=== PATIENT | female | born 1950 | race Caucasian/White ===

== ENCOUNTER 2019-09-05 11:52 | Emergency (ER) | payer MEDICARE ==
[~2019-09-05] VITALS: Ht 165.1 cm; Wt 41.7 kg
[~2019-09-05 11:52] MED LIST: ATOR40TA59 PO; BENZ100C PO; DOCU-109 PO; ESTR1TAB15 PO; FLUT9.9S NS; MULT1TAB6 PO; OMEP20CA10 PO; OXYM15MI4 NS; PRED20TA PO; SENN8.6T99 PO; SUCR1TAB35 PO; TIOT4MIS3 IH; VITA1CAP PO
[2019-09-05] MEDS ORDERED: ACETAMINOPHEN 500 MG TABLET PO ONE (13:00)
--- NOTE | 2019-09-05 13:01 | PHYS DOC ---
Past Medical History Past Medical History: Bronchitis, CAD, COPD Additional Past Surgical Histo: Cerebral aneurysm coiling Alcohol Use: None Drug Use: None Adult General Chief Complaint Chief Complaint: MULTIPLE COMPLAINTS HPI HPI Patient is a 68-year-old female presents to the emergency department for evaluation. She states that she awakened at 4 AM this morning, with a headache, some generalized blurred vision, dizziness which she describes as lightheadedness, and states that although her headache has persisted, the other symptoms have gradually improved. She denies any numbness or weakness, neck stiffness or pain, chest pain, or significant cough. She reports a mild increased shortness of breath compared to her baseline but does have a history of COPD. She has not had any vomiting. She states that she has had similar headaches to the current headache that she has had now, on and off for the past several years, and attributes them to "migraines". She denies any tinnitus, or hearing changes. She states that this headache is not different than her prior headaches and is not "worst headache of her life". There are no alleviating or exacerbating factors to her symptoms. The patient has a history of hypertension, and states she took her metoprolol this morning. Review of Systems Review of Systems Constitutional: Denies fever or chills [] Eyes: Denies current change in visual acuity, redness, or eye pain [] HENT: Denies nasal congestion or sore throat [] Respiratory: Denies cough or pleuritic pain[] Cardiovascular: The patient denies any shortness of breath, chest pain, palpitations, or orthopnea[] GI: Denies abdominal pain, nausea, vomiting, bloody stools or diarrhea [] : Denies dysuria or hematuria [] Musculoskeletal: Denies back pain or joint pain [] Integument: Denies rash or skin lesions [] Neurologic: Denies focal weakness or sensory changes [] Endocrine: Denies polyuria or polydipsia [] All other systems were reviewed and found to be within normal limits, except as documented in this note. Current Medications Current Medications Current Medications Medications (Trade) Dose Ordered Sig/Fam Start Time Stop Time Status Last Admin Dose Admin Acetaminophen (Tylenol) 1,000 mg 1X ONCE 09/05/19 13:00 09/05/19 13:01 DC 09/05/19 13:29 1,000 MG Allergies Allergies Allergies Coded Allergies Type Severity Reaction Last Updated Verified No Known Drug Allergies 03/17/16 No Physical Exam Physical Exam PHYSICAL EXAM: CONSTITUTIONAL: Well developed, well nourished HEAD: normocephalic, atraumatic EENT: PERRL, EOMI. Conjunctivae normal color, sclerae non-icteric; moist mucous membranes. There is no nystagmus NECK: Supple, non-tender; no meningismus. LUNGS: Lungs CTA, breathing even and unlabored. Normal air movement. HEART: Regular rate and rhythm, no murmur CHEST: No deformity; non-tender ABDOMEN: The abdomen is soft, and non-tender, no masses or bruits. EXTREM: Normal ROM; no deformity, no calf tenderness. Normal pulses palpable in all extremities. There is no pedal edema. SKIN: No rash; no diaphoresis NEURO: Alert; normal speech and cognition; CN's grossly intact; strength grossly intact without focal deficit. [id number] and heel arneas testing is normal. Visual rubio are intact by confrontation. NIH stroke scale score is 0. BACK: No CVA TTP. Current Patient Data Vital Signs Vital Signs Date Time Temp Pulse Resp B/P (MAP) Pulse Ox O2 Delivery O2 Flow Rate FiO2 09/05/19 12:33 97.8 60 18 190/86 (120) 98 Room Air 97.8 Lab Values Laboratory Tests Test 09/05/19 12:13 09/05/19 12:46 Urine Collection Type Unknown Urine Color Yellow Urine Clarity Clear Urine pH 7.5 Urine Specific [place] 1.010 Urine Protein Negative mg/dL (NEG-TRACE) Urine Glucose (UA) Negative mg/dL (NEG) Urine Ketones (Stick) Negative mg/dL (NEG) Urine Blood Negative (NEG) Urine Nitrite Negative (NEG) Urine Bilirubin Negative (NEG) Urine Urobilinogen Dipstick 0.2 mg/dL (0.2 mg/dL) Urine Leukocyte Esterase Negative (NEG) Urine RBC 11-20 /HPF (0-2) Urine WBC Occ /HPF (0-4) Urine Squamous Epithelial Cells Mod /LPF Urine Bacteria Few /HPF (0-FEW) White Blood Count 9.4 x10^3/uL (4.0-11.0) Red Blood Count 4.81 x10^6/uL (3.50-5.40) Hemoglobin 15.1 g/dL (12.0-15.5) Hematocrit 44.7 % (36.0-47.0) Mean Corpuscular Volume 93 fL (79-100) Mean Corpuscular Hemoglobin 31 pg (25-35) Mean Corpuscular Hemoglobin Concent 34 g/dL (31-37) Red Cell Distribution Width 13.5 % (11.5-14.5) Platelet Count 226 x10^3/uL (140-400) Neutrophils (%) (Auto) 65 % (31-73) Lymphocytes (%) (Auto) 26 % (24-48) Monocytes (%) (Auto) 8 % (0-9) Eosinophils (%) (Auto) 1 % (0-3) Basophils (%) (Auto) 1 % (0-3) Neutrophils # (Auto) 6.1 x10^3/uL (1.8-7.7) Lymphocytes # (Auto) 2.4 x10^3/uL (1.0-4.8) Monocytes # (Auto) 0.8 x10^3/uL (0.0-1.1) Eosinophils # (Auto) 0.1 x10^3/uL (0.0-0.7) Basophils # (Auto) 0.1 x10^3/uL (0.0-0.2) Prothrombin Time 12.3 SEC (11.7-14.0) Prothrombin Time INR 0.9 (0.8-1.1) Sodium Level 140 mmol/L (136-145) Potassium Level 4.3 mmol/L (3.5-5.1) Chloride Level 104 mmol/L (98-107) Carbon Dioxide Level 25 mmol/L (21-32) Anion Gap 11 (6-14) Blood Urea Nitrogen 13 mg/dL (7-20) Creatinine 0.9 mg/dL (0.6-1.0) Estimated GFR (Cockcroft-Gault) 62.3 BUN/Creatinine Ratio 14 (6-20) Glucose Level 81 mg/dL (70-99) Calcium Level 9.2 mg/dL (8.5-10.1) Total Bilirubin 0.5 mg/dL (0.2-1.0) Aspartate Amino Transferase (AST) 35 U/L (15-37) Alanine Aminotransferase (ALT) 35 U/L (14-59) Alkaline Phosphatase 84 U/L (46-116) Troponin I Quantitative < 0.017 ng/mL (0.000-0.055) Total Protein 7.1 g/dL (6.4-8.2) Albumin 3.8 g/dL (3.4-5.0) Albumin/Globulin Ratio 1.2 (1.0-1.7) Laboratory Tests 09/05/19 12:46 Laboratory Tests 09/05/19 12:46 EKG EKG []Normal sinus rhythm at a rate of 56 bpm, borderline left axis deviation, normal intervals. There are no acute ischemic ST/T changes. Nonspecific changes are present. Radiology/Procedures Radiology/Procedures PROCEDURE: CT HEAD WO CONTRAST CT HEAD INDICATION: Headache COMPARISON: None Available. Exposure: One or more of the following individualized dose reduction techniques were utilized for this examination: 1. Automated exposure control 2. Adjustment of the mA and/or kV according to patient size 3. Use of iterative reconstruction technique TECHNIQUE: 5 mm contiguous axial images were obtained from the skull base to the vertex in both bone and soft tissue algorithm. FINDINGS: Mild bilateral periventricular white matter hypodensities likely chronic small vessel ischemic disease. Metallic aneurysm coils artifact limits evaluation. There is a 1.7 x 1.0 cm hyperdensity identified abutting the left frontoparietal skull bone and abutting the dura best visualized on series 2 image #24 probably a meningioma. The basal cisterns are uneffaced. No evidence of acute intracranial hemorrhage. No extra-axial fluid collections. No mass effect or midline shift. Ventricular size is appropriate. Basal cisterns are patent. IMPRESSION: 1. 1.7 cm hyperdensity abutting the dura in the left frontoparietal scalp bone probably meningioma. MRI would be useful for confirmation in the aneurysm coils compatible. Alternatively comparison to prior exam is recommended if available. 2. Metallic aneurysm coils artifact limits evaluation. [] PROCEDURE: PORTABLE CHEST 1V EXAM: Chest, single view. HISTORY: Shortness of breath. COMPARISON: 03/17/2016 FINDINGS: A frontal view of the chest is obtained. There is emphysema. There is biapical and basilar pleural-parenchymal scarring. There are few calcified granulomas. There is a stable cardiac silhouette. IMPRESSION: No acute pulmonary finding. Course & Med Decision Making Course & Med Decision Making Pertinent Labs and Imaging studies reviewed. (See chart for details) [] 2:40 PM: The patient's condition remains stable. She is feeling significantly better and her headache has completely resolved after administration of Tylenol. I discussed test results, including the CT scan results, the need for close follow-up with her neurosurgery at [facility], and return precautions in detail. The patient feels well enough to go home. Her blood pressure is noted to be somewhat elevated still, and I discussed importance of those outpatient follow- up for her blood pressure. Dragon Disclaimer Dragon Disclaimer This electronic medical record was generated, in whole or in part, using a voice recognition dictation system. Departure Departure Impression: Primary Impression: Headache Additional Impressions: Microscopic hematuria Hypertension Disposition: HOME, SELF-CARE Condition: IMPROVED Referrals: JUAN ROACH MD (PCP) Patient Instructions: Dizziness, General Headache Without Cause, Hematuria, Adult, Hypertension Additional Instructions: Contact your primary care provider for further outpatient evaluation. Your blood pressure was noted to be elevated today, and will warrant further outpatient management and follow-up. Additionally, there is a small mass seen on her CAT scan today, her head, which might be consistent with a meningioma, but further outpatient evaluation is warranted. Please call the neurosurgery Department at [facility], where you have had care prior, for further outpatient evaluation. Additionally, there was a small amount of blood noticed in your urine today. Please follow-up with your primary care provider for further outpatient evaluation, as further testing and urological consultation is warranted to e nsure that there is no serious or malignant cause of this finding. Scripts Amlodipine Besylate (NORVASC) 5 Mg Tablet 1 TAB PO DAILY, #30 TAB 0 Refills Prov: LYNN MERIDA MD 09/05/19 Problem Qualifiers LYNN MERIDA MD Sep 05, 2019 13:01
[2019-09-05 13:10] LABS: BASO # 0.1 x10^3/uL (0.0-0.2); BASO % 1 % (0-3); EOS # 0.1 x10^3/uL (0.0-0.7); EOS % 1 % (0-3); HEMATOCRIT 44.7 % (36.0-47.0); HEMOGLOBIN 15.1 g/dL (12.0-15.5); LYMPH # 2.4 x10^3/uL (1.0-4.8); LYMPH % 26 % (24-48); MEAN CORPUSCULAR HEMOGLOBIN 31 pg (25-35); MEAN CORPUSCULAR HGB CONC 34 g/dL (31-37); MEAN CORPUSCULAR VOLUME 93 fL (79-100); MONO # 0.8 x10^3/uL (0.0-1.1); MONO % 8 % (0-9); NEUT # 6.1 x10^3/uL (1.8-7.7); NEUT % 65 % (31-73); PLATELET COUNT 226 x10^3/uL (140-400); RED BLOOD COUNT 4.81 x10^6/uL (3.50-5.40); RED CELL DISTRIBUTION WIDTH 13.5 % (11.5-14.5); WHITE BLOOD COUNT 9.4 x10^3/uL (4.0-11.0)
[2019-09-05 13:19] LABS: PROTHROMBIN TIME PATIENT 12.3 SEC (11.7-14.0)
[2019-09-05 13:24] LABS: CALCIUM 9.2 mg/dL (8.5-10.1); CREATININE 0.9 mg/dL (0.6-1.0); GFR 62.3; POTASSIUM 4.3 mmol/L (3.5-5.1)
[2019-09-05 13:32] LABS: ALBUMIN 3.8 g/dL (3.4-5.0); ALBUMIN/GLOBULIN RATIO 1.2 (1.0-1.7); TOTAL BILIRUBIN 0.5 mg/dL (0.2-1.0); TOTAL PROTEIN 7.1 g/dL (6.4-8.2)
[2019-09-05 13:42] LABS: BILIRUBIN,URINE NEGATIVE (NEG); CLARITY,URINE CLEAR; COLOR,URINE YELLOW; NITRITE,URINE NEGATIVE (NEG); PH,URINE 7.5; PROTEIN,URINE NEGATIVE (NEG-TRACE); UROBILINOGEN,URINE 0.2 mg/dL (0.2 mg/dL)
[2019-09-05 13:49] LABS: BACTERIA,URINE FEW /HPF (0-FEW); SQUAMOUS EPITHELIAL CELL,UR MOD /LPF
[2019-09-05 13:52] LABS: WBC,URINE OCC /HPF (0-4)
--- NOTE | 2019-09-05 13:54 | RAD ---
EXAM: Chest, single view. HISTORY: Shortness of breath. COMPARISON: 03/17/2016 FINDINGS: A frontal view of the chest is obtained. There is emphysema. There is biapical and basilar pleural-parenchymal scarring. There are few calcified granulomas. There is a stable cardiac silhouette. IMPRESSION: No acute pulmonary finding. Electronically signed by: Sera Becerra MD (09/05/2019 1:51 PM) [facility]
--- NOTE | 2019-09-05 14:10 | RAD ---
CT HEAD INDICATION: Headache COMPARISON: None Available. Exposure: One or more of the following individualized dose reduction techniques were utilized for this examination: 1. Automated exposure control 2. Adjustment of the mA and/or kV according to patient size 3. Use of iterative reconstruction technique TECHNIQUE: 5 mm contiguous axial images were obtained from the skull base to the vertex in both bone and soft tissue algorithm. FINDINGS: Mild bilateral periventricular white matter hypodensities likely chronic small vessel ischemic disease. Metallic aneurysm coils artifact limits evaluation. There is a 1.7 x 1.0 cm hyperdensity identified abutting the left frontoparietal skull bone and abutting the dura best visualized on series 2 image #24 probably a meningioma. The basal cisterns are uneffaced. No evidence of acute intracranial hemorrhage. No extra-axial fluid collections. No mass effect or midline shift. Ventricular size is appropriate. Basal cisterns are patent. IMPRESSION: 1. 1.7 cm hyperdensity abutting the dura in the left frontoparietal scalp bone probably meningioma. MRI would be useful for confirmation in the aneurysm coils compatible. Alternatively comparison to prior exam is recommended if available. 2. Metallic aneurysm coils artifact limits evaluation. Electronically signed by: Rodney Zuniga MD (09/05/2019 2:07 PM) [id number]
[2019-09-05 14:28] VITALS: BP 191/90
[2019-09-05] MEDS ORDERED: AMLO5TAB4 PO (14:43)
--- NOTE | 2019-09-05 16:08 | EKG ---
[facility] [address] [place] [address] Test Date: 2019-09-05 Test Time: 12:41:15 Pat Name: RADHA VARELA Department: Room: Gender: F Distribution System Operator: : [id number] Requested By: LYNN MERIDA Order Number: [id number] Reading MD: Measurements Intervals [place] Rate: 56 P: 70 DE: 176 QRS: -34 QRSD: 88 T: 77 QT: 424 QTc: 411 Interpretive Statements SINUS RHYTHM ABNORMAL LEFT AXIS DEVIATION T ABNORMALITY IN HIGH LATERAL LEADS ABNORMAL ECG No previous ECG available for comparison
== END 2019-09-05 14:56 | disposition home or self-care (01) ==
LOC: ER 11:52
DX: R51 Headache (principal); I10 Essential (primary) hypertension; R31.9 Hematuria, unspecified; J44.9 Chronic obstructive pulmonary disease, unspecified; I25.10 Atherosclerotic heart disease of native coronary artery without angina pectoris
CPT/HCPCS: 36415; 70450; 71045; 80053; 81001; 84484; 85025; 85610; 93005; 99285